=== PATIENT | female | born 1990 | race Caucasian/White ===

== ENCOUNTER 2016-11-08 05:59 | Observation (INO) ==
[2016-11-08] MEDS ORDERED: KETOROLAC 30 MG/ML INJECTION IVP ONE (06:10)
[2016-11-08] MEDS ORDERED: SALINE FLUSH 10ml SYRINGE IVF PRN (06:10)
[2016-11-08] MEDS ORDERED: ONDANSETRON 4 MG/2 ML INJECTION IVP ONE (06:10)
[2016-11-08] MEDS ORDERED: MORPHINE SULFATE 4 MG SYRINGE IVP ONE (06:10)
[2016-11-08] MEDS ORDERED: NS 1,000 ML IV ONE (06:13)
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
[2016-11-08] MEDS ORDERED: CIPROFLOXACIN PB 400 MG/200 ML BAG IV SCH (08:15)
[2016-11-08] MEDS ORDERED: MetroNIDAZOLE PB 500 MG/100 ML BAG IV SCH (08:15)
[2016-11-08] MEDS ORDERED: ONDANSETRON 4 MG/2 ML INJECTION IVP PRN (08:48)
--- NOTE | 2016-11-08 08:55 | History & Physical Report ---
<Anel Moss V - Last Filed: 11/08/16 09:20> History of Present Illness Date: 11/08/16 Chief complaint: Abd pain with Colitis HPI: Madisyn is a 26 yr old female who was seen in the ER on sunday 11/05 with abdominal pain. At that time she was found to have leukocytosis and CT scan did reveal colitis. The cause was thought to be related to recent use of Keflex and Bactrim antibiotics for a right cheek skin infection. Patient was feeling better and discharged home on [place] for pain control. She returned to the emergency room this morning for continued abdominal pain that is worse in nature. She reports that the pain is constant, however at times becomes worse. When pain is at its peak, she often has a bowel movement. She reports vomiting 3 yesterday, however, nothing today. Further evaluation was completed in the emergency room today. Today, patient continues to have leukocytosis with a white count of 14.5, hemoglobin 13.5, hematocrit 38.7, neutrophils 78%. Sodium is 143, potassium 3.5, BUN 12, creatinine 0.7, calcium 8.3. Lipase is normal at 36, serum lactate also normal 0.7. test is negative. Urinalysis is negative. A KUB was obtained. This morning KUB was obtained does reveal air- filled loops of nondilated large and small bowel, possibly representing an ileus. There is mild wall thickening in the colon representing colitis. Given her continued pain accompanied with dilated bowel and leukocytosis. The hospitalist services were contacted and accepted patient for outpatient admission for further evaluation and treatment. It is expected that her stay will be less than 2 overnights. Review of Systems All systems: reviewed and no additional remarkable complaints except as stated - Gastrointestinal Gastrointestinal: Present: as per HPI, abdominal pain (epigastric, RUQ), change in bowel habits, nausea, vomiting PFSH Patient Stated Medical History Asthma Gastroesophageal Reflux Disease facial Cellulitis Depression Bipolar personality Surgical History: . wisdom teeth extraction Family History: Father- Mother- [place]'s disease, diabetes, hypothyroidism - Social History Smoking status: Current every day smoker Substance use type: does not use Substance last used: just [employer] Alcohol intake frequency: does not drink Social history: Primary care provider, Dr. Culver Medications Home Medications Medication Instructions Recorded Confirmed Type No known Home medications [No home 11/08/16 11/08/16 History meds] Allergies Allergy/AdvReac Type Severity Reaction Status Date / Time No Known Drug Allergies Allergy Unknown Verified 11/08/16 06:31 Exam Vital Signs: Temperature 98.4 F 11/08/16 07:05 Pulse Rate 73 11/08/16 07:05 Respiratory Rate 16 11/08/16 07:05 Blood Pressure 112/57 11/08/16 07:05 Pulse Oximetry 97 11/08/16 07:05 Oxygen Delivery Method Room Air Height: 1.52 m Weight: 56.699 kg - Constitutional Present: no acute distress, mild distress - Routine HEENT Exam Eye: Present: EOMI ENT: Present: mucous membranes moist, dentition normal - Routine Neck Exam Present: supple - Routine Respiratory Exam Present: CTA bilaterally. Absent: wheezes - Routine Cardiovascular Exam Present: RRR, S1, S2. Absent: murmur - Routine Abdominal Exam Present: soft, tenderness (RUQ, epigastric), non distended. Absent: normoactive bowel sounds (hypoactive), distended - Routine Extremities Exam Present: normal capillary refill - Routine Back/Spine/Pelvis Exam Back/Spine: Present: full ROM - Routine Skin Exam Present: intact, dry, warm - Routine Neurological Exam Present: alert, oriented X3, CN II-XII intact - Routine Psychiatric Exam Present: normal affect, normal thought process Results - Labs CBC & Chem 7: 11/08/16 06:45 11/08/16 06:45 Microbiology Results: Microbiology 11/08/16 06:44 Peripheral/Iv Start Blood Culture - Preliminary Culture Initiated - Results Pending 11/08/16 06:51 Peripheral/Iv Start Blood Culture - Preliminary Culture Initiated - Results Pending Assessment and Plan DVT Prophylaxis: SCD's Resuscitation Status: Full Code Assessment and Plan: Abdominal pain with colitis Dilated bowel loops Leukocytosis Hypokalemia Asthma GERD Depression Borderline personality Plan Will admit outpatient observation under the care of Dr Walsh (covering Hospitalist) for colitis, leukocytosis. Consult placed to Dr. Craig for further surgical evaluation. Given findings of dilated loops of bowel and concern for possible ileus. Patient did receive IV Cipro and Flagyl in the emergency department. We will continue this for antimicrobial coverage. Blood cultures pending. Will also obtain a GI panel to rule out infectious etiology and C. difficile given. Patient did recently complete oral antibiotics for facial cellulitis. Half-normal saline with 20 KCl at 100 ML per hour for gentle hydration Patient is to be nothing by mouth at this time until further surgical evaluation is completed. Zofran as needed for nausea Toradol as needed for pain control SCDs to bilateral lower extremity for DVT prophylaxis Will recheck CBC and BMP tomorrow morning to follow blood counts, renal function and electrolytes. Will discuss further plan of care and orders with attending, Dr Walsh. At time of discharge medical care will return to primary care provider, Dr. Culver Hospital Course Summary Disclaimer: The visit summary below is not to be considered part of the above Progress Note. Hospital Course: 11/08/16-admission Will admit outpatient observation under the care of Dr Walsh (covering Hospitalist) for colitis, leukocytosis. Consult placed to Dr. Craig for further surgical evaluation. Given findings of dilated loops of bowel and concern for possible ileus. Patient did receive IV Cipro and Flagyl in the emergency department. We will continue this for antimicrobial coverage. Blood cultures pending. Will also obtain a GI panel to rule out infectious etiology and C. difficile given. Patient did recently complete oral antibiotics for facial cellulitis. Half-normal saline with 20 KCl at 100 ML per hour for gentle hydration Patient is to be nothing by mouth at this time until further surgical evaluation is completed. Zofran as needed for nausea Toradol as needed for pain control SCDs to bilateral lower extremity for DVT prophylaxis Will recheck CBC and BMP tomorrow morning to follow blood counts, renal function and electrolytes. Will discuss further plan of care and orders with attending, Dr Walsh. At time of discharge medical care will return to primary care provider, Dr. Culver <Jennifer Walsh - Last Filed: 11/08/16 11:52> History of Present Illness Date: 11/08/16 PENDING SALE TO [facility] Patient Stated Medical History Other HEENT Yes: wears bifocals Asthma Yes Gastroesophageal Reflux Yes Disease Cellulitis Yes: CURRENTLY Depression Yes: MANIC-DEPRESSION Other Behavioral Health Yes: BORDERLINE PERSONALITY Irregular Menses Yes Exam Vital Signs: Temperature 97.4 F 11/08/16 09:11 Pulse Rate 68 11/08/16 09:11 Respiratory Rate 16 11/08/16 09:11 Blood Pressure 109/67 11/08/16 09:11 Pulse Oximetry 97 11/08/16 09:11 Oxygen Delivery Method Room Air Height: 5 ft Weight: 60.2 kg Results - Labs CBC & Chem 7: 11/08/16 06:45 11/08/16 06:45 Assessment and Plan Assessment and Plan: Agree with above assessment and plan. Main concern with patient is noncompliance as an outpatient. Awaiting C. difficile results. Continue with Cipro and Flagyl. Continue other outpatient medications. Hospital Course Summary Disclaimer: The visit summary below is not to be considered part of the above Progress Note.
[2016-11-08] MEDS ORDERED: NS with KCL 20 mEq 20 MEQ/1,000 ML IV.SOLN IV SCH (09:00)
--- NOTE | 2016-11-08 09:22 | XRay Report ---
EXAM: XR KUB w upright COMPARISON: None available. HISTORY:Severe abdominal pain. Low across entire abdomen. Abd pain . FINDINGS: The lung bases are clear. The visceral organ outlines appear unremarkable. Some air-filled loops of nondilated large and small bowel are noted. No osseous abnormality is identified. No abnormal calcifications are seen. There may be mild wall thickening of the colon, which could represent mucosal edema perhaps from a colitis versus nondistention. IMPRESSION: Air-filled loops of nondilated large and small bowel which may represent a mild ileus. There may be mild wall thickening of the colon, which could represent mucosal edema perhaps from a colitis versus nondistention.Clinical correlation is suggested. LOCATION OF DICTATION: [place] .
[2016-11-08 09:34] VITALS: BMI 25.9
[2016-11-08] MEDS: NS with KCL 20 mEq 1,000 ML IV SCH ×2 (10:04→23:22)
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
[2016-11-08] MEDS: KETOROLAC 30 MG/ML INJECTION IVP PRN ×2 (14:33→23:20)
[2016-11-08] MEDS ORDERED: AZITHROMYCIN IV 500 MG in NS 250ml 250 ML IV SCH (16:15)
[2016-11-08] MEDS ORDERED: NS FLUSH BAG 500ml IV PRN (17:21)
--- NOTE | 2016-11-08 18:46 | Consultation ---
DATE OF CONSULTATION 11/08/2016 FINDINGS Mrs. Galvan is a 26-year-old female whom I was asked to see today as a result of her history and physical findings of abdominal pain in conjunction with an abnormal CT scan. Patient informs me that she has not felt well now for about the last two weeks. Patient states that around October 26 she had developed an infection involving her right cheek region. She was subsequently placed on antibiotics. Patient states that over the last couple of weeks she has been experiencing increasing pain within her right midabdomen, suprapubic region and her epigastric region. She has been having some loose stools/diarrhea. The patient states that over the weekend she has now developed bloody diarrhea. She denies any exposure to retirement facilities. She denies any exposure to a childcare facility. 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 The patient had apparently presented to the emergency room facility several days ago and was discharged to home. With her increasing abdominal pain and onset of bloody diarrhea, the patient represented to the emergency room and has subsequently been admitted for further evaluation. The patient was resting soundly upon entering the room. PAST MEDICAL HISTORY, PAST SURGICAL HISTORY, MEDICATIONS, ALLERGIES, SOCIAL HISTORY, FAMILY HISTORY, REVIEW OF SYSTEMS Performed by my nurse practitioner, Reese Patterson APRN PHYSICAL EXAM GENERAL: Mrs. Galvan is a 26-year-old female who upon entering the room did not appear to be in acute distress. As stated above, she was sleeping soundly and was actually somewhat difficult to awaken. After being awakened, however, the patient stated that she was indeed in a moderate amount of pain. VITAL SIGNS: Afebrile, normotensive. Current vitals include temperature 97.4, pulse 69, respirations 17, blood pressure 101/62, SAO2 97% room air. HEENT: Normocephalic. Pupils are equally round and react to light and accommodation. CHEST: Clear to auscultation bilaterally. HEART: Regular rate and rhythm. Normal S1 and S2 without gallops, murmurs or clicks. ABDOMEN: Palpation of the abdomen revealed the patient to be fairly tender in nature with a component of some voluntary guarding with palpation within the suprapubic region, right midabdomen and epigastric region. Left midabdomen and left lower quadrant were soft and nontender. I did not appreciate any evidence for hepatosplenomegaly or other abnormal masses. EXTREMITIES: Without clubbing, cyanosis, or edema. NEURO: Cranial nerves II-XII grossly intact. Patient is without focal motor or sensory deficits. LABORATORY/RADIOGRAPHIC EVALUATION The patient had a CBC today and her white count was 14.5. Hemoglobin was normal at 13.5. The patient did not have bandemia but did have 78% neutrophils. CMP was obtained and found to be essentially within normal limits. The patient did undergo a bacterial stool culture as a result of her history for bloody diarrhea. PCR was positive for Campylobacter and enteropathogenic E-coli. CT scan was obtained during her prior ER visit. This was on November 05, 2016. CT scan did reveal marked inflammation of her ascending colon and transverse colon consistent with underlying colitis. ASSESSMENT 26-year-old female with infectious colitis with positive cultures for E-coli and Campylobacter. PLAN At this point in time the patient does not appear to have an acute surgical abdomen. Would recommend appropriate antibiotic therapy for her infectious colitis. I do see that changes have been made to her antibiotics. The patient was begun empirically on Flagyl and Ciprofloxacin. The patient has now been placed on azithromycin. I do believe we can go ahead give the patient a clear liquid diet. Will continue to follow along in the patient's care. Hopefully over the next 24-48 hours her abdominal pain and colitis will improve/resolve with antibiotic therapy. ERIC
[2016-11-08] MEDS: HYDROMORPHONE 2 MG/ML INJECTION IVP PRN ×2 (20:24→23:52)
[2016-11-09] MEDS: HYDROMORPHONE 2 MG/ML INJECTION IVP PRN (04:53)
[2016-11-09 08:49] VITALS: BP 106/65; PULSE 47; RESP 14; TEMP 97.1; O2SAT 98
[2016-11-09] MEDS: KETOROLAC 30 MG/ML INJECTION IVP PRN (09:15)
--- NOTE | 2016-11-09 09:50 | Discharge Instructions ---
Discharge Plan - Med Rec/Dispo Prescriptions: New Azithromycin [Zithromax] 500 mg PO DAILY #3 tablet Discharge Instructions/Outpatient Orders: Final Provider Discharge Instructions Location: Determined By Patient - Disposition 01 Discharged Home, Self-Care
--- NOTE | 2016-11-09 09:55 | Discharge Summary ---
Discharge Information Date of admission: 11/08/16 08:51 Attending Physician: Jennifer Walsh MD Primary care physician: Chad Culver MD - Discharge Diagnosis (1) Colitis Status: Resolved - Laboratory Labs: 11/09/16 04:41 11/09/16 04:41 History of Present Illness HPI: Madisyn is a 26 yr old female who was seen in the ER on sunday 11/05 with abdominal pain. At that time she was found to have leukocytosis and CT scan did reveal colitis. The cause was thought to be related to recent use of Keflex and Bactrim antibiotics for a right cheek skin infection. Patient was feeling better and discharged home on [place] for pain control. She returned to the emergency room this morning for continued abdominal pain that is worse in nature. She reports that the pain is constant, however at times becomes worse. When pain is at its peak, she often has a bowel movement. She reports vomiting 3 yesterday, however, nothing today. Further evaluation was completed in the emergency room today. Today, patient continues to have leukocytosis with a white count of 14.5, hemoglobin 13.5, hematocrit 38.7, neutrophils 78%. Sodium is 143, potassium 3.5, BUN 12, creatinine 0.7, calcium 8.3. Lipase is normal at 36, serum lactate also normal 0.7. test is negative. Urinalysis is negative. A KUB was obtained. This morning KUB was obtained does reveal air- filled loops of nondilated large and small bowel, possibly representing an ileus. There is mild wall thickening in the colon representing colitis. Given her continued pain accompanied with dilated bowel and leukocytosis. The hospitalist services were contacted and accepted patient for outpatient admission for further evaluation and treatment. It is expected that her stay will be less than 2 overnights. Objective Vital signs: Temperature 97.1 F 11/09/16 08:48 Pulse Rate 47 L 11/09/16 08:48 Respiratory Rate 14 11/09/16 08:48 Blood Pressure 106/65 11/09/16 08:48 Pulse Oximetry 98 11/09/16 08:48 Oxygen Delivery Method Room Air General-aaox3, in no acute distress CV-regular rate and rhythm Lungs-clear auscultation bilaterally Abdomen-benign Extremities-no edema cyanosis or clubbing Neurological-nonfocal Weight: 62 kg Hospital Course This is a general summary of the patient's hospital course. For more details refer to the complete medical record. This is a 26-year-old female admitted for profuse diarrhea and colitis seen on CAT scan. Stool studies came back positive for Campylobacter. She was changed to azithromycin. Diarrhea has improved. Pain improved as well. She is to complete 3 more doses of antibiotics. Time spent with patient: 25 - 35 minutes Discharge Plan - Med Rec/Dispo Prescriptions: New Azithromycin [Zithromax] 500 mg PO DAILY #3 tablet Discharge Instructions/Outpatient Orders: Final Provider Discharge Instructions Location: Determined By Patient - Disposition 01 Discharged Home, Self-Care
[2016-11-09] MEDS: NS with KCL 20 mEq 1,000 ML IV SCH (11:16)
== END 2016-11-09 11:00 | disposition home or self-care (01) ==
LOC: ED 05:59 → MED 05:59
PROVIDERS: ADMIT Internal Medicine; ATTEND Internal Medicine